=== PATIENT | male | born 1930 | race Caucasian/White ===

== ENCOUNTER 2017-08-01 08:41 | Emergency (ER) | payer MEDICARE ==
[2017-08-01 09:08] VITALS: BP 140/66
--- NOTE | 2017-08-01 09:24 | UC ---
Lower Extremity/Ankle HPI - HPI Summary HPI Summary: LEFT FOOT PAIN AND SWELLING X 2 DAYS NO KNOWN INJURY NO FEVER , NO CHILLS VERY PAINFUL TO WALK - History of Current Complaint Chief Complaint: UCLowerExtremity Stated Complaint: LEFT FOOT Time Seen by Provider: 08/01/17 08:52 Hx Obtained From: Patient Onset/Duration: Gradual Onset, Lasting Days - 1 Severity Initially: Severe Severity Currently: Severe Aggravating Factor(s): Standing Alleviating Factor(s): Rest, Elevation, Ice Able to Bear Weight: Yes - Risk Factors Gout Risk Factors: Age Over 40, Male, Hypertension - Allergies/Home Medications Allergies/Adverse Reactions: Allergies Allergy/AdvReac Type Severity Reaction Status Date / Time pollen Allergy Sneezing Uncoded 08/01/17 09:08 Home Medications: Home Medications Acetaminophen [Acetaminophen Extra Stren] 1,000 mg PO DAILY PRN 08/01/17 [ History Confirmed 08/01/17] Atorvastatin* [Lipitor*] 5 mg PO QPM 08/01/17 [History Confirmed 08/01/17] Ramipril [Altace] 5 mg PO BID 08/01/17 [History Confirmed 08/01/17] PMH/Surg Hx/FS Hx/Imm Hx Cardiovascular History: Cardiac Disease - Surgical History Surgical History: Yes Surgery Procedure, Year, and Place: left inguinal hernia 1993 - Family History Known Family History: Positive: Hypertension - Social History Alcohol Use: Occasionally Substance Use Type: None Smoking Status (MU): Never Smoked Tobacco Review of Systems Constitutional: Negative Skin: Negative Eyes: Negative ENT: Negative Respiratory: Negative Is Patient Immunocompromised?: No All Other Systems Reviewed And Are Negative: Yes Physical Exam Triage Information Reviewed: Yes Appearance: Well-Appearing, No Pain Distress, Well-Nourished Vital Signs: Initial Vital Signs Temp 97.9 F 08/01/17 09:00 Pulse 68 08/01/17 09:00 Resp 18 08/01/17 09:00 BP 140/66 08/01/17 09:00 Vital Signs Reviewed: Yes Eyes: Positive: Conjunctiva Clear ENT: Positive: Normal ENT inspection, Hearing grossly normal, Pharynx normal Neck: Positive: Supple, Nontender, No Lymphadenopathy Respiratory: Positive: Chest non-tender, Lungs clear, Normal breath sounds Cardiovascular: Positive: RRR, No Murmur, Pulses Normal Musculoskeletal: Positive: Other: - LEFT FOOT : LEFT PROXIMAL GREAT TOE MTP JOINT TENDERNESS, + ERYTHEM , SWELLING Lower Extremity Course/Dx - Differential Dx/Diagnosis Provider Diagnoses: GOUT LEFT FOOT Discharge - Discharge Plan Condition: Stable Disposition: HOME Prescriptions: predniSONE TAB* [Deltasone TAB*] 40 mg PO DAILY #10 tab Patient Education Materials: Gout (ED) Referrals: Dk Lloyd MD [Primary Care Provider] - 5 Days
== END 2017-08-01 09:23 | disposition home or self-care (01) ==
LOC: UCCORT 08:41
DX: M10.9 Gout, unspecified (principal)
CPT/HCPCS: 99212; G0463

== ENCOUNTER 2018-02-01 09:16 | Emergency (ER) | payer MEDICARE ==
[2018-02-01 09:44] VITALS: BP 141/70
[2018-02-01] MEDS ORDERED: predniSONE TAB* 20 MG PO ONE (10:07)
--- NOTE | 2018-02-01 10:12 | UC ---
Lower Extremity/Ankle HPI - HPI Summary HPI Summary: 87 yo male with hx of gout presents with left great toe redness and swelling x a day or two no trauma no fever - History of Current Complaint Chief Complaint: UCLowerExtremity Stated Complaint: LFT FOOT SWELLING Time Seen by Provider: 02/01/18 09:43 Hx Obtained From: Patient Onset/Duration: Gradual Onset, Lasting Days Severity Initially: Moderate Severity Currently: Mild Pain Intensity: 0 - 4-6 with wt bearing Pain Scale Used: 0-10 Numeric Aggravating Factor(s): Standing, Ambulation Alleviating Factor(s): Rest Able to Bear Weight: Yes - Allergies/Home Medications Allergies/Adverse Reactions: Allergies Allergy/AdvReac Type Severity Reaction Status Date / Time pollen Allergy Sneezing Uncoded 02/01/18 09:44 Home Medications: Home Medications Acetaminophen TAB* [Tylenol TAB*] 1,000 mg PO ONCE PRN 02/01/18 [History Confirmed 02/01/18] Aspirin 160.25 mg PO DAILY 02/01/18 [History Confirmed 02/01/18] Ramipril CAP* [Altace CAP*] 5 mg PO DAILY 02/01/18 [History Confirmed 02/01/18] PMH/Surg Hx/FS Hx/Imm Hx Previously Healthy: Yes Endocrine History: Dyslipidemia Cardiovascular History: Hypertension - Surgical History Surgical History: Yes Surgery Procedure, Year, and Place: left inguinal hernia 1993 - Family History Known Family History: Positive: Hypertension - Social History Alcohol Use: Occasionally Substance Use Type: None Smoking Status (MU): Never Smoked Tobacco Review of Systems Constitutional: Negative Skin: Negative Eyes: Negative ENT: Negative Respiratory: Negative Cardiovascular: Negative Gastrointestinal: Negative Genitourinary: Negative Motor: Negative Neurovascular: Negative Musculoskeletal: Arthralgia Neurological: Negative Psychological: Negative Is Patient Immunocompromised?: No All Other Systems Reviewed And Are Negative: Yes Physical Exam Triage Information Reviewed: Yes Appearance: Well-Appearing, No Pain Distress, Well-Nourished Vital Signs: Initial Vital Signs Temp 97.7 F 02/01/18 09:35 Pulse 74 02/01/18 09:35 Resp 18 02/01/18 09:35 BP 141/70 02/01/18 09:35 Pulse Ox 99 02/01/18 09:35 Vital Signs Reviewed: Yes Eyes: Positive: Conjunctiva Clear ENT: Positive: Hearing grossly normal. Negative: Nasal congestion, Nasal drainage, Trismus, Muffled voice, Hoarse voice Neck: Positive: Supple Respiratory: Positive: Lungs clear, Normal breath sounds, No respiratory distress, No accessory muscle use Cardiovascular: Positive: RRR, No Murmur Musculoskeletal: Positive: Edema @ - redness/swelling/painful ROM left 1st MTP Neurological: Positive: Alert Skin: Negative: rashes Lower Extremity Course/Dx - Differential Dx/Diagnosis Provider Diagnoses: acute gouty attack left great toe Discharge - Sign-Out/Discharge Documenting (check all that apply): Discharge/Admit/Transfer - Discharge Plan Condition: Stable Disposition: HOME Prescriptions: predniSONE [Deltasone] 40 mg PO DAILY #8 tab Patient Education Materials: Gout (ED) Referrals: Dk Lloyd MD [Primary Care Provider] - 2 Weeks Additional Instructions: see your MD in a couple of weeks for recheck - Billing Disposition and Condition Condition: STABLE Disposition: HOME
== END 2018-02-01 10:15 | disposition home or self-care (01) ==
LOC: UCCORT 09:16
DX: M10.9 Gout, unspecified (principal)
CPT/HCPCS: 99212; G0463; J7512

== ENCOUNTER 2018-10-25 09:58 | Emergency (ER) | payer MEDICARE ==
[2018-10-25 11:40] VITALS: BP 130/72
--- NOTE | 2018-10-25 11:47 | UC ---
Respiratory Complaint HPI - HPI Summary HPI Summary: 87 y/o male presents to the urgent care c/o sinus congestion, dry cough, and productive cough, body aches, GARZA, chills for the past week. Pt reports he is producing a yellowish phlegm. He has taken Tylenol PO and Robitussin PO to alleviate symptoms. Pt states pain is mild 2/10. Pt denies fever, SOB, chest pain, abdominal pain, N/V/D. - History of Current Complaint Chief Complaint: UCRespiratory Stated Complaint: COUGH CONGESTION Time Seen by Provider: 10/25/18 11:43 Hx Obtained From: Patient Onset/Duration: Gradual Onset, Lasting Weeks - 1 week, Still Present, Worse Since - yesterday Timing: Intermittent Episodes Severity Initially: Mild Severity Currently: Moderate Pain Intensity: 2 Pain Scale Used: 0-10 Numeric Character: Cough: Productive, Sputum Description: - yellowish Aggravating Factors: Recumbent Position Alleviating Factors: OTC Meds - Robitussin, tylenol PO Associated Signs And Symptoms: Positive: Chills, URI, Nasal Congestion, Sinus Discomfort. Negative: Wheezing - Risk Factors Pulmonary Embolism Risk Factors: Negative Cardiac Risk Factors: Negative Pseudomonas Risk Factors: Negative Tuberculosis Risk Factors: Negative - Allergies/Home Medications Allergies/Adverse Reactions: Allergies Allergy/AdvReac Type Severity Reaction Status Date / Time pollen Allergy Sneezing Uncoded 10/25/18 11:28 Home Medications: Home Medications [id number] LIQ* [Robitussin*] 10 ml PO Q4H PRN 10/25/18 [History Confirmed ] PMH/Surg Hx/FS Hx/Imm Hx Previously Healthy: Yes Endocrine History: Dyslipidemia Cardiovascular History: Cardiac Disease, Hypertension, Myocardial Infarction - Surgical History Surgical History: Yes Surgery Procedure, Year, and Place: left inguinal hernia 1993. [facility] HEART BYPASS - Family History Known Family History: Positive: Cardiac Disease, Hypertension - Social History Occupation: Retired Lives: With Family Alcohol Use: Occasionally Substance Use Type: None Smoking Status (MU): Never Smoked Tobacco Review of Systems All Other Systems Reviewed And Are Negative: Yes Constitutional: Positive: Negative Skin: Positive: Negative Eyes: Positive: Negative ENT: Positive: Nasal Discharge, Sinus Congestion, Sinus Pain/Tenderness, Other - yellowish PND Respiratory: Positive: Cough - productive w/ yellowish phlegm Cardiovascular: Positive: Negative Gastrointestinal: Positive: Negative Genitourinary: Positive: Negative Motor: Positive: Negative Neurovascular: Positive: Negative Musculoskeletal: Positive: Myalgia Neurological: Positive: Negative Psychological: Positive: Negative Is Patient Immunocompromised?: No Physical Exam - Summary Physical Exam Summary: Vital Signs Reviewed: Yes General: well developed, well nourished old male sitting in the examining table w/o any apparent distress Eyes: Positive: Conjunctiva Clear - PERRLA, EOMI, fundi grossly normal ENT: Positive: Normal ENT inspection, Hearing grossly normal, Pharynx normal, Nasal congestion - edematous and erythematous nasal mucosa, Nasal drainage - yellowish drainage, TMs normal. Negative: Tonsillar swelling, Tonsillar exudate. Positive maxillary and frontal tenderness on percussion. +moderate yellowish PND Neck: Positive: Supple, Nontender, No Lymphadenopathy Respiratory: no orthopnea or dyspnea. Able to speak in full sentences, no retractions or accessory muscle use, no tripod position, stridor, or head bobbing. Positive breath sounds bilaterally. B/L posterior lungs w/ mild rhonchi, no wheezing, no crackles or rales. Cardiovascular: Positive: RRR, No Murmur, Pulses Normal, Brisk Capillary Refill Abdomen Description: Positive: Nontender, No Organomegaly, Soft. Negative: CVA Tenderness (R), CVA Tenderness (L) Bowel Sounds: Positive: Present Musculoskeletal Exam: Normal Musculoskeletal: Positive: Strength Intact, ROM Intact, No Edema Neurological Exam: Normal Psychological Exam: Normal Skin Exam: Normal Triage Information Reviewed: Yes Vital Signs: Initial Vital Signs Temp 98.3 F 10/25/18 11:30 Pulse 55 10/25/18 11:30 Resp 24 10/25/18 11:30 BP 130/72 10/25/18 11:30 Pulse Ox 98 10/25/18 11:30 Diagnostic Evaluation - Laboratory O2 Sat by Pulse Oximetry: 98 Respiratory Course/Dx - Course Course Of Treatment: 87 y/o male presents to the urgent care c/o sinus congestion, dry cough, and productive cough, body aches, GARZA, chills for the past week. Pt reports he is producing a yellowish phlegm. He has taken Tylenol PO and Robitussin PO to alleviate symptoms. Pt states pain is mild 2/10. Pt denies fever, SOB, chest pain, abdominal pain, N/V/D. Hx obtained. Pt w/ acute bacterial sinusitis on examination. Rapid Influenza A&B:negative, Chest X-ray Ordered: No active cardiopulmonary disease observed. Pt with 1 week of symptoms getting worse. Pt Rx Amoxicillin PO and flonase nasal spray. Discharge instructions explained to Pt. Advised to Return to the clinic or PCP if symptoms do not improve.Pt understood and agreed with plan of care. - Differential Dx/Diagnosis Differential Diagnosis/HQI/PQRI: Bronchitis, Influenza, Laryngitis, Lower Resp Infection, Sinusitis, Other - pneumonia Provider Diagnosis: Acute bacterial sinusitis, Cough Discharge - Sign-Out/Discharge Documenting (check all that apply): Patient Departure - D/C home All imaging exams completed and their final reports reviewed: Yes - Discharge Plan Condition: Stable Disposition: HOME Prescriptions: Amoxicillin PO (*) [Amoxicillin 875 MG (*)] 875 mg PO BID #14 tab Fluticasone NASAL SPRAY 50MCG* [Flonase NASAL SPRAY 50MCG*] 2 spray BOTH NARES DAILY #1 btl Patient Education Materials: Sinusitis (ED) Referrals: Dk Lloyd MD [Primary Care Provider] - 3 Days Additional Instructions: 1- Please increase fluid intake and rest. take full course of antibiotic to avoid resistance 2-Use Flonase as directed to help drain fluid. Also buy saline drops to clear sinuses 3- Continue taking Robitussin to alleviate cough 4-Return to the clinic or PCP in 3 days if symptoms do not improve for further management and treatment - Billing Disposition and Condition Condition: STABLE Disposition: Home
== END 2018-10-25 12:43 | disposition home or self-care (01) ==
LOC: UCCORT 09:58
DX: J01.90 Acute sinusitis, unspecified (principal); B96.89 Other specified bacterial agents as the cause of diseases classified elsewhere; R05 Cough
CPT/HCPCS: 71046; 99212; G0463